=== PATIENT | female | born 1980 ===

== ENCOUNTER 2019-03-18 14:58 | Inpatient (IN) | payer OTHER ==
[~2019-03-18] VITALS: Ht 162.6 cm; Wt 3.6 kg
[2019-04-15] MEDS ORDERED: FOLIC ACID1 MG PO (13:25)
[2019-04-15] MEDS ORDERED: PRENATABS RX T1 EACH PO (13:25)
== END 2019-04-19 15:13 | disposition home or self-care (01) | DRG 787 ==
LOC: OB/GYN 04-16 06:00 → O/R 04-16 06:00 → OB/GYN 04-16 11:46
PROVIDERS: ADMIT Obstetrics & Gynecology
PROC: 4A1HXCZ Monitoring of Products of Conception, Cardiac Rate, External Approach (ICD-10-PCS; 2019-04-16)
PROC: 10D00Z1 Extraction of Products of Conception, Low, Open Approach (ICD-10-PCS; principal; 2019-04-16 10:45)
DX: O82 Encounter for cesarean delivery without indication (principal); O98.32 Other infections with a predominantly sexual mode of transmission complicating childbirth; Z3A.39 39 weeks gestation of pregnancy; Z37.0 Single live birth